=== PATIENT | female | born 1995 | race Caucasian/White ===

== ENCOUNTER 2021-11-04 16:35 | Emergency (ER) | payer OTHER ==
[2021-11-04 17:16] VITALS: BP 137/97; PULSE 100; RESP 20; TEMP 97.6; BMI 36.5
== END 2021-11-04 20:46 | disposition home or self-care (01) ==
LOC: JER 16:35 → JERFT 16:35
DX: K64.9 Unspecified hemorrhoids (principal)
CPT/HCPCS: 99282-25

== ENCOUNTER 2021-11-13 11:08 | Emergency (ER) | payer OTHER ==
[2021-11-13 11:31] VITALS: BP 120/76; PULSE 73; RESP 18; TEMP 97.9; BMI 36.5
[2021-11-13] MEDS ORDERED: FLUCONAZOLE 150 MG TABLET PO ONE ×2 (12:58→13:01)
[2021-11-13] MEDS ORDERED: predniSONE 20 MG TABLET (UD) PO ONE (12:59)
[2021-11-13] MEDS ORDERED: predniSONE 20 MG TABLET (UD) ONE ×2 (13:01→13:02)
== END 2021-11-13 14:20 | disposition home or self-care (01) ==
LOC: JERFT 11:08
DX: K62.89 Other specified diseases of anus and rectum (principal); N76.0 Acute vaginitis
CPT/HCPCS: 84703; 99283-25